=== PATIENT | male | born 1990 | race Asian ===

== ENCOUNTER 2023-11-02 12:53 | Emergency (ER) | payer OTHER ==
[~2023-11-02] VITALS: Ht 172.7 cm; Wt 78.0 kg
[2023-11-02 13:06] VITALS: O2SAT 100
[2023-11-02 13:47] LABS: BASOPHILS % 0.7 % (0.0-2.0); EOSINOPHILS % 1.3 % (0.0-5.0); HEMATOCRIT. 40.8 % (42.0-52.0); HEMOGLOBIN. 13.5 g/dL (14.0-18.0); LYMPHOCYTES % 16.1 % (20.0-50.0); MEAN CORPUSCULAR HEMOGLOBIN 31.3 pg (28.0-32.0); MEAN CORPUSCULAR VOLUME 94.7 fL (80.0-94.0); MEAN PLATELET VOLUME 8.5 fl (7.4-10.4); MONOCYTES % 7.6 % (2.0-8.0); NEUTROPHILS % 74.3 % (40.0-76.0); PLATELET 270 x1000/uL (130-400); RED BLOOD CELL COUNT 4.31 mill/uL (4.7-6.1); RED CELL DISTRIBUTION WIDTH 12.7 % (11.6-14.6); WHITE BLOOD COUNT 8.1 x1000/uL (4.5-11.0)
[2023-11-02 13:52] LABS: CHLORIDE 102 mEq/L (98-107); POTASSIUM 4.2 mEq/L (3.5-5.1); SODIUM 138 mEq/L (136-145)
[2023-11-02 13:53] LABS: CALCIUM 10.6 mg/dL (8.7-10.4); CARBON DIOXIDE 31 mEq/L (21-32)
[2023-11-02 13:58] LABS: CREATININE 1.8 mg/dL (0.6-1.3); GLUCOSE 101 mg/dL (70-105); UREA NITROGEN BLOOD 17 mg/dL (9-23)
[2023-11-02 14:00] LABS: ALANINE AMINOTRANSFERASE 12 IU/L (10-49); ALBUMIN 5.2 g/dL (3.2-4.8); ASPARTATE AMINOTRANSFERASE 14 IU/L (<34)
[2023-11-02 14:01] LABS: BILIRUBIN DIRECT 0.3 mg/dL (<=3.0); BILIRUBIN TOTAL 1.1 mg/dL (0.1-1.0); PROTEIN TOTAL 8.4 g/dL (6.0-8.3)
[2023-11-02] MEDS ORDERED: AMOX1TAB16 MT (18:20)
[2023-11-02] MEDS ORDERED: IBUP-2028 MT (18:20)
[2023-11-02] MEDS ORDERED: HYDR-4001 MT (18:20)
[2023-11-02 19:05] VITALS: BP 147/99; PULSE 68; RESP 18; TEMP 36.78072; O2SAT 99
[2023-11-02] MEDS: MORPHINE SULFATE 4 MG/ML INJ (FOR IV/IM USE) IV NR (19:05)
[2023-11-02] MEDS: SODIUM CHLORIDE 0.9% 1,000 ML IV ONE (19:05)
[2023-11-02] MEDS: ONDANSETRON HCL 4MG/2ML INJ IV NR (19:05)
== END 2023-11-02 19:31 | disposition home or self-care (01) ==
LOC: ER 12:53
DX: K62.89 Other specified diseases of anus and rectum (principal); N17.9 Acute kidney failure, unspecified; F12.10 Cannabis abuse, uncomplicated; Z98.890 Other specified postprocedural states
CPT/HCPCS: 36415; 74176; 80048; 80076; 85025; 86850; 86900; 99284